=== PATIENT | female | born 1955 | race Caucasian/White ===

== ENCOUNTER 2019-07-11 23:43 | Emergency (ER) | payer MEDICARE ==
[2019-07-12] MEDS ORDERED: KETOROLAC TROMETHAMINE INJ/PF 30 MG/1 ML SDV IV ONE (02:30)
[2019-07-12] MEDS ORDERED: NORMAL SALINE 1000 ML 1,000 ML IV ONE (02:30)
[2019-07-12] MEDS ORDERED: ONDANSETRON HCL INJ/PF 4 MG/2 ML SDV IV ONE (02:30)
[2019-07-12] MEDS ORDERED: MORPHINE SULFATE 10 MG/ML INJ IV ONE (02:42)
[2019-07-12 04:25] LABS: ABSOLUTE LYMPHOCYTES (AUTO) 0.7 10^3/uL (0.5-4.7); ABSOLUTE MONOCYTES (AUTO) 0.6 10^3/uL (0.1-1.4); ABSOLUTE NEUT (AUTO) 10.2 10^3/uL (1.7-8.2); BASOPHILS % (AUTO) 0.1 % (0-2); EOSINOPHILS % (AUTO) 0.2 % (0-6); HEMATOCRIT 47.6 % (36.0-47.0); HEMOGLOBIN 16.4 g/dL (12.0-15.5); LYMPHOCYTES % (AUTO) 6.1 % (13-45); MEAN CORPUSCULAR HEMOGLOBIN 29.1 pg (27.0-33.4); MEAN CORPUSCULAR HGB CONC 34.4 g/dL (32.0-36.0); MEAN CORPUSCULAR VOLUME 85 fl (80-97); MONOCYTES % (AUTO) 5.5 % (3-13); PLATELET COUNT 296 10^3/uL (150-450); RED BLOOD COUNT 5.63 10^6/uL (3.72-5.28); RED CELL DISTRIBUTION WIDTH 16.3 % (11.5-14.0); SEGMENTED NEUTROPHILS % (AUTO) 88.1 % (42-78); TOTAL CELLS COUNTED % (AUTO) 100 %; WHITE BLOOD COUNT 11.6 10^3/uL (4.0-10.5)
[2019-07-12] MEDS ORDERED: NORMAL SALINE 1000 ML 1,000 ML IV PRN (04:27)
[2019-07-12 04:44] LABS: ALBUMIN 4.2 g/dL (3.5-5.0); ALKALINE PHOSPHATASE 99 U/L (38-126); ANION GAP 12 (5-19); ASPARTATE AMINO TRANSFERASE 37 U/L (14-36); BILIRUBIN,DIRECT 0.2 mg/dL (0.0-0.4); BILIRUBIN,TOTAL 0.5 mg/dL (0.2-1.3); BLOOD UREA NITROGEN 19 mg/dL (7-20); CALCIUM 10.1 mg/dL (8.4-10.2); CARBON DIOXIDE 24 mmol/L (22-30); CHLORIDE 106 mmol/L (98-107); GLUCOSE 164 mg/dL (75-110); POTASSIUM 4.2 mmol/L (3.6-5.0); TOTAL PROTEIN 8.9 g/dL (6.3-8.2)
--- NOTE | 2019-07-12 04:45 | ER Document Report ---
ED General - General Chief Complaint: nausea and voimting Stated Complaint: NAUSEA,VOMITING Time Seen by Provider: 07/12/19 02:25 Notes: 63-year-old female with history of cerebellar ataxia, anxiety, hypothyroid presents for nausea/vomiting that started earlier today. Patient had her PEG tube removed on Monday due to tolerating p.o. and states she was doing well but then started to have nausea/vomiting for 5 hours straight on . Patient denies any fever. Patient states mild abdominal pain. Denies chest pain or shortness of breath. Patient was unable to take her home pain medicine due to nausea/vomiting. Patient was given Zofran 4 mg by EMS with little relief. TRAVEL OUTSIDE OF THE [place] IN LAST 30 DAYS: No - Related Data Allergies/Adverse Reactions: Latex, Natural Rubber Allergy (Severe, Verified 07/12/19 01:11) Edema penicillin G Allergy (Severe, Verified 07/12/19 01:32) Hives clindamycin Allergy (Intermediate, Verified 07/12/19 01:29) rash Acyclovir Analogues Allergy (Unknown, Verified 07/12/19 01:25) Unknown reaction clemizole Allergy (Unknown, Unverified 07/12/19 01:33) Anesthetics - Radha Type- Parabens Adverse Reaction (Unknown, Verified 07/12/19 01:26) benzoyl peroxide Adverse Reaction (Unknown, Verified 07/12/19 01:27) Lincosamides Adverse Reaction (Unknown, Unverified 07/12/19 01:31) Past Medical History - Social History Smoking Status: Former Smoker Chew tobacco use (# tins/day): No Frequency of alcohol use: None Drug Abuse: None Family History: Other - did not review Patient has suicidal ideation: No Patient has homicidal ideation: No - Past Medical History Cardiac Medical History: Reports: Hx Hypertension Review of Systems - Review of Systems Notes: Constitutional: Negative for fever. HENT: Negative for sore throat. Eyes: Negative for visual changes. Cardiovascular: Negative for chest pain. Respiratory: Negative for shortness of breath. Gastrointestinal: Positive for abdominal pain, vomiting. Negative for diarrhea. Genitourinary: Negative for dysuria. Musculoskeletal: Negative for back pain. Skin: Negative for rash. Neurological: Negative for headaches, weakness or numbness. 10 point ROS negative except as marked above and in HPI. Physical Exam - Vital signs Vitals: Temp Pulse Resp BP Pulse Ox 99.1 F 127 H 18 126/72 H 97 07/11/19 23:52 07/11/19 23:52 07/11/19 23:52 07/11/19 23:52 07/11/19 23:52 - Notes Notes: GENERAL: Well-appearing, well-nourished and in no acute distress. HEAD: Atraumatic, normocephalic. EYES: Extraocular movements intact, sclera anicteric, conjunctiva are normal. NECK: Normal range of motion, supple without lymphadenopathy or JVD. LUNGS: Breath sounds clear to auscultation bilaterally and equal. No wheezes ra les or rhonchi. HEART: Regular rate and rhythm without murmurs, rubs or gallops. ABDOMEN: Soft, nontender. Hole where PEG tube was removed has no erythema or drainage. No guarding, no rebound. No masses appreciated. EXTREMITIES: Normal range of motion, no pitting or edema. No clubbing or cyanosis. NEUROLOGICAL: Cranial nerves II through XII grossly intact. Normal speech, normal gait. PSYCH: Normal mood, normal affect. SKIN: Warm, Dry, normal turgor, no rashes or lesions noted. Course - Re-evaluation Re-evalutation: 07/12/19 nontoxic, well-appearing 63-year-old female presents with nausea/vomiting that started earlier morning. Patient has vomited a few times while in the ER. States worse when she tries to move. Abdomen soft nontender. Patient denies any fever. Patient is afebrile. Patient is tachycardic. Lab work was initiated and IV fluids were ordered. Morphine was ordered for pain control, patient has chronic back pain that she takes tramadol for but was unable to due to the nausea/vomiting. Patient also was given IV Zofran. CBC indicates that patient is dehydrated. Another 2 L bolus IV was ordered. 07/12/19 06:13 Pt is incontinent of urine at baseline. Straight cath ordered. Zofran improved nausea. Pt was able to be moved with relief in symptoms. 07/12/19 07:05 HR has improved significantly, 104. 07/12/19 07:59 PO challenge passed. Pt given prescription for zofran and strict return precautions. Pt given close follow up with PCP. All questions/concerns addressed prior to discharge. - Vital Signs Vital signs: Temp Pulse Resp BP Pulse Ox 99.1 F 127 H 14 120/87 H 93 07/11/19 23:52 07/11/19 23:52 07/12/19 06:01 07/12/19 06:00 07/12/19 06:01 - Laboratory Result Diagrams: 07/12/19 04:05 07/12/19 04:05 Laboratory results interpreted by me: 07/12/19 07/12/19 04:05 04:05 WBC 11.6 H RBC 5.63 H Hgb 16.4 H Hct 47.6 H RDW 16.3 H Lymph % (Auto) 6.1 L Absolute Neuts (auto) 10.2 H Seg Neutrophils % 88.1 H Creatinine 0.51 L Glucose 164 H AST 37 H Total Protein 8.9 H Discharge - Discharge Clinical Impression: Nausea & vomiting Qualifiers: Vomiting type: unspecified Vomiting Intractability: unspecified Qualified Code(s): R11.2 - Nausea with vomiting, unspecified Condition: Stable Disposition: HOME, SELF-CARE Instructions: Antinausea Medication ([facility]), Vomiting ([facility]) Additional Instructions: Your work-up today show that you are dehydrated. You were given IV fluids. Please take Zofran as prescribed for nausea/vomiting. Please follow-up with your primary care doctor or 1 of the clinics listed in 3 to 5 days. Return immediately to ER for any worsening symptoms, including fever, vomiting not controlled by medication, abdominal pain, pus drainage, redness, chest pain, shortness of breath, or any other symptoms that are concerning to you Prescriptions: Ondansetron [Zofran Odt 4 mg Tablet] 4 mg PO Q4HP PRN #30 tab.rapdis PRN Reason: Referrals: DAPHNEY HARTMANN MD [COMMUNITY BASED STAFF] - Follow up in 3-[address] [facility] [Provider Group] - Follow up in 3-5 days
[2019-07-12 05:01] LABS: A TYPE INFLUENZA AG NEGATIVE (NEGATIVE); B INFLUENZA AG NEGATIVE (NEGATIVE)
[2019-07-12] MEDS ORDERED: ONDANSETRON ODT 4 MG TAB (6 TAB/ER DISP) PO PRN (08:02)
--- NOTE | 2019-07-12 10:13 | ER Document Report ---
Doctor's Note Notes: 07/12/19 10:12 Requested by nursing to reevaluate patient prior to discharge as blood pressure was noted to be elevated. I spoke with the patient and caregivers. I reviewed the chart. 07/12/19 10:13 Patient normally takes tramadol for chronic back pain. Has not had this since 8 PM last night. Patient also states that she has high blood pressure takes lisinopril 10 mg in the morning and did not take this this morning. We will give patient a dose of the lisinopril. Will have nursing check manual pressure but we are covering the patient's blood pressure, she is reporting back pain and likely the elevated blood pressure is also related to her worsening back pain
[2019-07-12] MEDS ORDERED: TRAMADOL HCL 50 MG TABLET PO ONE (10:14)
[2019-07-12] MEDS ORDERED: LISINOPRIL 10 MG TABLET PO ONE (10:14)
[2019-07-12 10:46] VITALS: BP 130/69
== END 2019-07-12 10:55 | disposition home or self-care (01) ==
LOC: EDBD 23:43 → ER 23:43
DX: R11.2 Nausea with vomiting, unspecified (principal); R10.9 Unspecified abdominal pain; I10 Essential (primary) hypertension; R32 Unspecified urinary incontinence; M54.9 Dorsalgia, unspecified; G89.29 Other chronic pain; Z79.899 Other long term (current) drug therapy; Z98.890 Other specified postprocedural states; Z91.040 Latex allergy status; Z88.0 Allergy status to penicillin; Z88.1 Allergy status to other antibiotic agents; Z88.3 Allergy status to other anti-infective agents; Z88.8 Allergy status to other drugs, medicaments and biological substances; Z87.891 Personal history of nicotine dependence
CPT/HCPCS: 99283; 96361; 51701; 96374; 96375; 36415; 83690; 85025; 80053; 87804; J2270; J2405; J7030; A9270 ×3

== ENCOUNTER 2019-07-12 18:15 | Emergency (ER) | payer MEDICARE ==
[2019-07-12 18:30] LABS: ABSOLUTE LYMPHOCYTES (AUTO) 1.4 10^3/uL (0.5-4.7); ABSOLUTE MONOCYTES (AUTO) 0.5 10^3/uL (0.1-1.4); BASOPHILS % (AUTO) 0.1 % (0-2); EOSINOPHILS % (AUTO) 0.1 % (0-6); HEMATOCRIT 43.9 % (36.0-47.0); HEMOGLOBIN 14.7 g/dL (12.0-15.5); LYMPHOCYTES % (AUTO) 20.7 % (13-45); MEAN CORPUSCULAR HEMOGLOBIN 28.6 pg (27.0-33.4); MEAN CORPUSCULAR HGB CONC 33.4 g/dL (32.0-36.0); MEAN CORPUSCULAR VOLUME 85 fl (80-97); PLATELET COUNT 259 10^3/uL (150-450); RED BLOOD COUNT 5.14 10^6/uL (3.72-5.28); RED CELL DISTRIBUTION WIDTH 16.1 % (11.5-14.0); SEGMENTED NEUTROPHILS % (AUTO) 72.1 % (42-78); TOTAL CELLS COUNTED % (AUTO) 100 %
[2019-07-12 19:47] LABS: ALBUMIN 3.7 g/dL (3.5-5.0); ALKALINE PHOSPHATASE 83 U/L (38-126); ANION GAP 9 (5-19); ASPARTATE AMINO TRANSFERASE 31 U/L (14-36); BILIRUBIN,DIRECT 0.3 mg/dL (0.0-0.4); BILIRUBIN,TOTAL 0.5 mg/dL (0.2-1.3); BLOOD UREA NITROGEN 16 mg/dL (7-20); CALCIUM 9.2 mg/dL (8.4-10.2); CARBON DIOXIDE 26 mmol/L (22-30); CHLORIDE 107 mmol/L (98-107); GLUCOSE 144 mg/dL (75-110); POTASSIUM 3.9 mmol/L (3.6-5.0)
[2019-07-12] MEDS ORDERED: METOCLOPRAMIDE HCL INJ/PF 10 MG/2 ML SDV IV ONE (21:06)
[2019-07-12] MEDS ORDERED: MECLIZINE HCL 25 MG TABLET PO ONE ×2 (21:06→22:13)
[2019-07-12] MEDS ORDERED: NORMAL SALINE 1000 ML 1,000 ML IV ONE ×2 (21:06→23:55)
[2019-07-12] MEDS ORDERED: MORPHINE SULFATE 10 MG/ML INJ IV ONE (21:16)
--- NOTE | 2019-07-12 21:22 | ER Document Report ---
ED General - General Chief Complaint: Nausea/Vomiting Stated Complaint: NAUSEA/VOMITING Time Seen by Provider: 07/12/19 21:04 Primary Care Provider: [facility] [Provider Group] - Follow up tomorrow DAPHNEY HARTMANN MD [COMMUNITY BASED STAFF] - Follow up tomorrow Notes: 63-year-old female presents for nausea/vomiting. Patient was discharged this morning from the ER for same after successfully completing a p.o. challenge and receiving IV fluids. Patient's nausea/vomiting was initially controlled with Z ofran yesterday during her stay in the ER however states when she got home she started throwing up again. Pt's nausea/vomiting yesterday was worse with movement. Patient denies any fever, chills, abdominal pain. Patient had PEG tube removed on Monday and states she ate without difficulty after removal. Patient was given an additional dose of Zofran by EMS. TRAVEL OUTSIDE OF THE [place] IN LAST 30 DAYS: No - Related Data Allergies/Adverse Reactions: Latex, Natural Rubber Allergy (Severe, Verified 07/12/19 18:28) Edema penicillin G Allergy (Severe, Verified 07/12/19 18:28) Hives clindamycin Allergy (Intermediate, Verified 07/12/19 18:28) rash Acyclovir Analogues Allergy (Unknown, Verified 07/12/19 18:28) Unknown reaction clemizole Allergy (Unknown, Verified 07/12/19 18:28) Anesthetics - Radha Type- Parabens Adverse Reaction (Unknown, Verified 07/12/19 18:28) benzoyl peroxide Adverse Reaction (Unknown, Verified 07/12/19 18:28) Lincosamides Adverse Reaction (Unknown, Verified 07/12/19 18:28) Past Medical History - Social History Smoking Status: Unknown if Ever Smoked Family History: Other - did not review Patient has suicidal ideation: No Patient has homicidal ideation: No - Past Medical History Cardiac Medical History: Reports: Hx Hypertension Endocrine Medical History: Reports: Hx Diabetes Mellitus Type 2 Review of Systems - Review of Systems Notes: Constitutional: Negative for fever. HENT: Negative for sore throat. Eyes: Negative for visual changes. Cardiovascular: Negative for chest pain. Respiratory: Negative for shortness of breath. Gastrointestinal: Positive for nausea/vomiting. Negative for abdominal pain or diarrhea. Genitourinary: Negative for dysuria. Musculoskeletal: Negative for back pain. Skin: Negative for rash. Neurological: Negative for headaches, weakness or numbness. 10 point ROS negative except as marked above and in HPI. Physical Exam - Vital signs Vitals: Resp 17 07/12/19 18:24 - Notes Notes: GENERAL: Well-appearing, well-nourished and in no acute distress. HEAD: Atraumatic, normocephalic. EYES: Extraocular movements intact, sclera anicteric, conjunctiva are normal. NECK: Normal range of motion, supple without lymphadenopathy or JVD. LUNGS: Breath sounds clear to auscultation bilaterally and equal. No wheezes rales or rhonchi. HEART: Mildly tachycardic. ABDOMEN: Soft, nontender. No guarding, no rebound. No masses appreciated. PSYCH: Normal mood, normal affect. SKIN: Warm, Dry, normal turgor, no rashes or lesions noted. Course - Re-evaluation Re-evalutation: 07/12/19 nontoxic, well-appearing 63-year-old female presents with nausea/vomiting. Lab work looks improved from yesterday. Will attempt Reglan this time and give IV fluids. Morphine was ordered due to patient being unable to take her home tramadol. Will also attempt meclizine due to possible positional nature of nausea/vomiting. Pt is afebrile, no leukocytosis, no hypoxia. 07/12/19 23:40 RN informs that pt is dry heaving and requesting anti-emetic. Also states she is having associated abdominal cramping. Bentyl and phenergan ordered. Plan of care discussed with pt and pt's as far as attempting anti-emetics to get nausea/vomiting under control and if unable then may need to be admitted. 07/13/19 02:38 Pt is PO tolerant. HR has improved. Pt has nausea but no vomiting at this time. Pt to be given prescriptions for Phenergan oral and suppository. Will also give patient prescription for meclizine due to possible positional nature of her nausea/vomiting. Patient also given prescription for Bentyl. Pk buck given close follow-up with PCP. All questions/concerns addressed prior to discharge. - Vital Signs Vital signs: Temp Pulse Resp BP Pulse Ox 98.1 F 106 H 14 139/55 H 99 07/12/19 19:32 07/12/19 18:28 07/12/19 23:01 07/12/19 23:01 07/12/19 23:01 - Laboratory Result Diagrams: 07/12/19 18:20 07/12/19 19:19 Laboratory results interpreted by me: 07/12/19 07/12/19 18:20 19:19 RDW 16.1 H Creatinine 0.48 L Glucose 144 H Discharge - Discharge Clinical Impression: Nausea & vomiting Qualifiers: Vomiting type: unspecified Vomiting Intractability: unspecified Qualified Code(s): R11.2 - Nausea with vomiting, unspecified Condition: Stable Disposition: HOME, SELF-CARE Instructions: Antinausea Medication ([facility]), Intravenous (IV) Fluids ([facility]), Vomiting ([facility]) Additional Instructions: Your labwork was improved from yesterday. Please take Phenergan as prescribed for nausea/vomiting. Please take Bentyl as needed for abdominal discomfort. Please take Meclizine as prescribed. Follow up with your primary care doctor in 2-3 days. Return to ER for any worsening symptoms including vomiting not contro lled by medication, abdominal pain, fever, chest pain, shortness of breath, or any other symptoms that are concerning to you. Prescriptions: Meclizine HCl [Antivert 25 mg Tablet] 25 mg PO TID PRN #21 tablet PRN Reason: Dicyclomine HCl [Bentyl 20 mg Tablet] 20 mg PO QID #40 tablet Promethazine HCl [Phenergan 25 mg Supp.rect] 1 supp LA Q6H #20 supp.rect Promethazine HCl [Phenergan 25 mg Tablet] 25 - 50 mg PO ASDIR PRN #30 tablet PRN Reason: Referrals: DAPHNEY HARTMANN MD [COMMUNITY BASED STAFF] - Follow up tomorrow [facility] [Provider Group] - Follow up tomorrow
[2019-07-12] MEDS ORDERED: DICYCLOMINE HCL INJ 20 MG/2 ML AMPULE IM ONE (23:40)
[2019-07-12] MEDS ORDERED: PROMETHAZINE HCL INJ 25 MG/1 ML VIAL IV ONE (23:40)
[2019-07-13] MEDS ORDERED: TRAMADOL HCL 50 MG TABLET PO ONE (02:40)
[2019-07-13 03:07] VITALS: BP 126/60
== END 2019-07-13 03:08 | disposition home or self-care (01) ==
LOC: ER 18:15
DX: R11.2 Nausea with vomiting, unspecified (principal); Z88.8 Allergy status to other drugs, medicaments and biological substances; I10 Essential (primary) hypertension; E11.9 Type 2 diabetes mellitus without complications
CPT/HCPCS: 99284; 96372; 96361; 96374; 96375; 36415; 83690; 87070; J0500; A9270 ×2; J2765; J2270; J2550; J7030 ×2